=== PATIENT | male | born 1955 | race Caucasian/White ===

== ENCOUNTER → 2017-07-30 | Day surgery (SDC) | payer OTHER ==
--- NOTE | 2017-07-30 10:06 | GPN ---
[f rep st] PROCEDURE NOTE DATE OF PROCEDURE: 07/30/2017 PREOPERATIVE DIAGNOSIS: Elevated PSA. POSTOPERATIVE DIAGNOSIS: Elevated PSA. NAME OF PROCEDURE: Transrectal ultrasound of the prostate with ultrasound-guided prostate biopsies. INDICATIONS: The patient is a 62-year-old gentleman with a history of elevated PSA. After discussin g options, he elected to come in for prostate biopsies. DESCRIPTION OF PROCEDURE: With the patient in the left lateral decubitus position, the transrectal u ltrasound probe was inserted into the prostate. Images were obtained. Prostate measured approximate ly 30 cubic centimeters. The periprosthetic tissue was then infiltrated with 1% lidocaine. 12 core biopsies of the prostate were then obtained from the right and left base, mid, and apical tissue. Geraldo meeks tolerated the tolerated the procedure well and was discharged in stable condition. /[id number]/MODL
== END | disposition home or self-care (01) ==
LOC: BMCIMAGING 07:17
PROVIDERS: ATTEND Urology
PROC: 0VB07ZX Excision of Prostate, Via Natural or Artificial Opening, Diagnostic (ICD-10-PCS; principal; 2017-07-30)
DX: R97.20 Elevated prostate specific antigen [PSA] (principal)